=== PATIENT | female | born 1945 | race Caucasian/White ===

== ENCOUNTER 2017-09-25 16:36 | Inpatient (IN) ==
[~2017-09-25 16:36] MED LIST: LIDOCAINE 1% 20 ML VIAL ONE
[2017-09-25] MEDS ORDERED: fentaNYL 100 MCG/2 ML VIAL ONE (16:38)
[2017-09-25] MEDS ORDERED: MIDAZOLAM 2 MG/2 ML VIAL ONE (16:39)
[2017-09-25] MEDS ORDERED: HEPARIN 5,000 UNIT/1 ML VIAL ONE (17:15)
[2017-09-25] MEDS ORDERED: AMIODARONE INJ 450 MG in DEXTROSE 5% 241 ML IV SCH (17:30)
[2017-09-25] MEDS ORDERED: ONDANSETRON 4 MG/2 ML VIAL IV PRN (18:10)
[2017-09-25] MEDS ORDERED: NOREPINEPHRINE 4 MG/4 ML VIAL IV ONE ×2 (18:24→19:27)
[2017-09-25] MEDS ORDERED: PROPOFOL 1,000 MG/100 ML BOTTLE IV ONE (18:33)
[2017-09-25] MEDS: PROPOFOL 1,000 MG/100 ML BOTTLE IV SCH (19:00)
[2017-09-25 19:16] LABS: Basophils # 0.1 10*3/uL (0.0-0.2); Basophils % 0.3 % (0.0-0.8); Eosinophils # 0.1 10*3/uL (0.0-0.87); Eosinophils % 0.6 % (0.00-10.9); Hematocrit 31.3 VOL% (35.7-47.0); Immature Granulocytes % 0.9 %; Immature Granulocytes Absolute 0.17 #; Lymphocytes % 10.3 % (21.3-54.2); Mean Corpuscular HGB Conc 31.9 GM/DL (32-36); Mean Corpuscular Hemoglobin 30 PG (27-34); Mean Corpuscular Volume 95.1 FL (87-102); Mean Platelet Volume 10.6 FL (9.6-12.0); Monocytes # 1.1 10*3/uL (0.11-0.8); Monocytes % 5.8 % (1.7-12.7); Neutrophils % 82.1 % (38.7-73.9); Platelet Count 275 T/CUMM (130-400); Red Blood Count 3.29 MC/CUMM (3.8-5.5); Red Cell Distribution Width 13.5 % (9.3-17.3); White Blood Count 19.5 T/CUMM (4-12)
[2017-09-25] MEDS: SODIUM CHLORIDE 0.9% 1,000 ML IV SCH (19:24)
[2017-09-25] MEDS ORDERED: SODIUM CHLORIDE 0.9% 1,000 ML IV ONE (20:00)
[2017-09-25] MEDS: DOBUTamine 500 MG/250 ML PREMIX IV SCH (20:00)
[2017-09-25 20:07] LABS: ABG HCO3 16.4 MMOL/L (20-26); ABG Oxygen Saturation 98.2 % (95-100); ABG PCO2 50.4 MM HG (35-48); ABG TCO2 17.5 MMOL/L (23-27)
[2017-09-25 20:08] LABS: ABG PH 7.169 (7.35-7.45)
[2017-09-25] MEDS ORDERED: SODIUM BICARBONATE 50 MEQ/50 ML SYRINGE IV ONE ×2 (20:16→20:26)
[2017-09-25 20:22] LABS: Alanine Aminotransferase 46 U/L (13-56); Albumin 2.5 G/DL (3.4-5.0); Alkaline Phosphatase 65 U/L (45-117); Aspartate Amino Transferase 256 U/L (0-37); Bilirubin,Total < 0.39 MG/DL (0.2-1.0); Blood Urea Nitrogen 17 MG/DL (7-18); Calcium 7.5 MG/DL (8.5-10.1); Glucose 240 MG/DL (74-106); Osmolality,Calculated 288.4 MOS/KG (273-304); Potassium 4.3 MMOL/L (3.5-5.1); Sodium 140 MMOL/L (136-145); Total Protein 4.9 G/DL (6.4-8.3)
[2017-09-25] MEDS: NOREPINEPHRINE 8 MG in SODIUM CHLORIDE 0.9% 242 ML IV SCH (20:45)
[2017-09-25] MEDS: CARVEDILOL 6.25 MG TABLET PO SCH (21:09)
[2017-09-25] MEDS: ROSUVASTATIN 20 MG TABLET PO SCH (21:09)
[2017-09-25 21:24] LABS: ABG Base Excess -2.9 MMOL/L (-2.5-2.5); ABG HCO3 21.9 MMOL/L (20-26); ABG Oxygen Saturation 98.7 % (95-100); ABG PCO2 37.5 MM HG (35-48); ABG PH 7.384 (7.35-7.45); ABG PO2 231.5 MM HG (80-95)
[2017-09-26] MEDS: NOREPINEPHRINE 8 MG in SODIUM CHLORIDE 0.9% 242 ML IV SCH ×6 (00:13→19:38)
[2017-09-26] MEDS ORDERED: AMIODARONE INJ 450 MG in DEXTROSE 5% 241 ML IV SCH ×2 (02:00→17:30)
[2017-09-26 04:50] LABS: ABG Base Excess -2.6 MMOL/L (-2.5-2.5); ABG HCO3 22.3 MMOL/L (20-26); ABG PCO2 29.4 MM HG (35-48); ABG PH 7.455 (7.35-7.45); ABG TCO2 19.2 MMOL/L (23-27)
[2017-09-26 04:54] LABS: Basophils % 0.1 % (0.0-0.8); Eosinophils % 0.1 % (0.00-10.9); Hematocrit 24.3 VOL% (35.7-47.0); Hemoglobin 8.2 GM/DL (12.0-16.0); Immature Granulocytes % 0.7 %; Immature Granulocytes Absolute 0.09 #; Lymphocytes # 2.2 10*3/uL (1.4-4.0); Lymphocytes % 15.8 % (21.3-54.2); Mean Corpuscular HGB Conc 33.7 GM/DL (32-36); Mean Corpuscular Hemoglobin 31 PG (27-34); Mean Platelet Volume 10.6 FL (9.6-12.0); Monocytes # 1.3 10*3/uL (0.11-0.8); Monocytes % 9.2 % (1.7-12.7); Neutrophils # 10.2 10*3/uL (1.4-7.4); Neutrophils % 74.1 % (38.7-73.9); Platelet Count 207 T/CUMM (130-400); Red Blood Count 2.64 MC/CUMM (3.8-5.5); Red Cell Distribution Width 13.3 % (9.3-17.3); White Blood Count 13.7 T/CUMM (4-12)
[2017-09-26] MEDS: PROPOFOL 1,000 MG/100 ML BOTTLE IV SCH ×5 (05:00→23:35)
[2017-09-26 05:28] LABS: CKMB % 9.6 %
[2017-09-26] MEDS ORDERED: NOREPINEPHRINE 4 MG/4 ML VIAL IV ONE (06:14)
[2017-09-26] MEDS: SODIUM CHLORIDE 0.9% 1,000 ML IV SCH ×4 (06:21→21:18)
[2017-09-26 07:59] LABS: Calcium 6.5 MG/DL (8.5-10.1); Osmolality,Calculated 289.1 MOS/KG (273-304); Potassium 3.8 MMOL/L (3.5-5.1)
[2017-09-26] MEDS ORDERED: SODIUM CHLORIDE 0.9% 1,000 ML IV PRN (08:11)
[2017-09-26 08:46] LABS: Risk Ratio 4.68; VLDL CHOLESTEROL 34.2 MG/DL
[2017-09-26] MEDS ORDERED: PANTOPRAZOLE 40 MG TABLET PO SCH (09:00)
[2017-09-26] MEDS: PANTOPRAZOLE 40 MG VIAL IV SCH (09:16)
[2017-09-26] MEDS: ASPIRIN EC 81 MG TABLET PO SCH (09:16)
[2017-09-26] MEDS: TICAGRELOR 90 MG TABLET PO SCH ×2 (09:17→20:20)
[2017-09-26] MEDS ORDERED: POTASSIUM CHLORIDE RIDER 10 MEQ in PREMIX 1 EACH IV PRN (10:55)
[2017-09-26] MEDS: POTASSIUM CHLORIDE RIDER 20 MEQ in PREMIX 1 EACH IV PRN (11:32)
[2017-09-26 12:25] LABS: Apearance,Urine Slightly Hazy (Clear); Bacteria,Urine Occasional /HPF (Few); Bilirubin,Urine Negative (Negative); Blood, Urine Moderate mg/dL (Negative); Glucose,Urine (UA) 150 mg/dL (Negative); Ketones,Urine 5 mg/dL (Negative); Mucus,Urine Many /LPF (Occasional); Nitrite,Urine Negative (Negative); Protein,Urine 30 MG/DL; RBC,Urine 6 /HPF (0-4); Squamous Epithelial Cell,Urine Occasional /HPF (0-10); Urine Color Yellow (Yellow); Urine Specific Gravity > 1.060 (1.001-1.035); Urine Urobilinogen < 2.0 EU/DL (0.2-1.0)
[2017-09-26 15:44] LABS: Hematocrit 32.5 VOL% (35.7-47.0); Hemoglobin 10.7 GM/DL (12.0-16.0)
[2017-09-26] MEDS: DOBUTamine 500 MG/250 ML PREMIX IV SCH (20:19)
[2017-09-26] MEDS: ROSUVASTATIN 20 MG TABLET PO SCH (20:20)
[2017-09-27] MEDS: SODIUM CHLORIDE 0.9% 1,000 ML IV SCH ×3 (03:10→13:22)
[2017-09-27 05:04] LABS: Basophils % 0.2 % (0.0-0.8); Eosinophils % 0.4 % (0.00-10.9); Hematocrit 28.7 VOL% (35.7-47.0); Hemoglobin 9.5 GM/DL (12.0-16.0); Immature Granulocytes % 0.4 %; Immature Granulocytes Absolute 0.04 #; Lymphocytes # 1.4 10*3/uL (1.4-4.0); Lymphocytes % 14.9 % (21.3-54.2); Mean Corpuscular HGB Conc 33.1 GM/DL (32-36); Mean Corpuscular Hemoglobin 29 PG (27-34); Mean Corpuscular Volume 88.9 FL (87-102); Monocytes # 0.7 10*3/uL (0.11-0.8); Monocytes % 7.4 % (1.7-12.7); Neutrophils # 7.3 10*3/uL (1.4-7.4); Neutrophils % 76.7 % (38.7-73.9); Platelet Count 109 T/CUMM (130-400); Red Blood Count 3.23 MC/CUMM (3.8-5.5); Red Cell Distribution Width 15.8 % (9.3-17.3); White Blood Count 9.5 T/CUMM (4-12)
[2017-09-27 05:05] LABS: ABG Base Excess -3.8 MMOL/L (-2.5-2.5); ABG HCO3 21.2 MMOL/L (20-26); ABG Oxygen Saturation 99.6 % (95-100); ABG PH 7.397 (7.35-7.45); ABG TCO2 18.6 MMOL/L (23-27)
[2017-09-27 05:45] LABS: Calcium 6.7 MG/DL (8.5-10.1); Osmolality,Calculated 286.7 MOS/KG (273-304); Potassium 3.3 MMOL/L (3.5-5.1)
[2017-09-27] MEDS: HYDROmorphone 2 MG/1 ML VIAL IV PRN ×2 (05:56)
[2017-09-27] MEDS: PROPOFOL 1,000 MG/100 ML BOTTLE IV SCH ×3 (06:00→19:55)
[2017-09-27] MEDS: POTASSIUM CHLORIDE RIDER 20 MEQ in PREMIX 1 EACH IV PRN ×2 (06:20→08:21)
[2017-09-27] MEDS: PANTOPRAZOLE 40 MG VIAL IV SCH (08:10)
[2017-09-27] MEDS: CARVEDILOL 6.25 MG TABLET PO SCH (08:10)
[2017-09-27] MEDS: ASPIRIN EC 81 MG TABLET PO SCH (08:10)
[2017-09-27] MEDS: LOSARTAN 25 MG TABLET PO SCH (08:10)
[2017-09-27] MEDS: TICAGRELOR 90 MG TABLET PO SCH ×2 (08:10→21:25)
[2017-09-27] MEDS: NOREPINEPHRINE 8 MG in SODIUM CHLORIDE 0.9% 242 ML IV SCH ×2 (08:22→16:38)
[2017-09-27 08:30] LABS: Hematocrit 29.2 VOL% (35.7-47.0); Hemoglobin 9.6 GM/DL (12.0-16.0)
[2017-09-27 11:25] LABS: CKMB % 3.7 %; Troponin I Only 34.8 NG/ML (0.00-0.045)
[2017-09-27] MEDS ORDERED: NICOTINE 14 MG/24 HR PATCH TRANSDERM ONE (14:30)
[2017-09-27] MEDS: NICOTINE 14 MG/24 HR PATCH TRANSDERM PRN (14:31)
[2017-09-27] MEDS ORDERED: ALPRAZolam 0.25 MG TABLET ONE (15:08)
[2017-09-27] MEDS: ALPRAZolam 0.25 MG TABLET PO SCH ×2 (15:13→21:25)
[2017-09-27 20:29] LABS: Hematocrit 28.5 VOL% (35.7-47.0); Hemoglobin 9.1 GM/DL (12.0-16.0)
[2017-09-27] MEDS: ROSUVASTATIN 20 MG TABLET PO SCH (21:25)
[2017-09-28] MEDS: SODIUM CHLORIDE 0.9% 1,000 ML IV SCH (00:51)
[2017-09-28] MEDS: PROPOFOL 1,000 MG/100 ML BOTTLE IV SCH ×4 (01:27→19:45)
[2017-09-28 04:45] LABS: ABG Base Excess -4.6 MMOL/L (-2.5-2.5); ABG HCO3 20.6 MMOL/L (20-26); ABG Oxygen Saturation 99.2 % (95-100); ABG PCO2 33.8 MM HG (35-48); ABG PH 7.377 (7.35-7.45); ABG TCO2 18.2 MMOL/L (23-27); Allen Test Positive; Pt O2 Delivery Device Ventilator
[2017-09-28 04:57] LABS: Basophils % 0.1 % (0.0-0.8); Eosinophils # 0.1 10*3/uL (0.0-0.87); Eosinophils % 0.8 % (0.00-10.9); Hematocrit 26.3 VOL% (35.7-47.0); Hemoglobin 8.9 GM/DL (12.0-16.0); Immature Granulocytes % 0.6 %; Immature Granulocytes Absolute 0.06 #; Lymphocytes # 0.7 10*3/uL (1.4-4.0); Lymphocytes % 7.1 % (21.3-54.2); Mean Corpuscular HGB Conc 33.8 GM/DL (32-36); Mean Corpuscular Hemoglobin 30 PG (27-34); Mean Corpuscular Volume 89.2 FL (87-102); Mean Platelet Volume 10.9 FL (9.6-12.0); Monocytes # 0.7 10*3/uL (0.11-0.8); Monocytes % 7.3 % (1.7-12.7); Neutrophils # 7.9 10*3/uL (1.4-7.4); Neutrophils % 84.1 % (38.7-73.9); Platelet Count 111 T/CUMM (130-400); Red Blood Count 2.95 MC/CUMM (3.8-5.5); Red Cell Distribution Width 16.4 % (9.3-17.3); White Blood Count 9.4 T/CUMM (4-12)
[2017-09-28] MEDS: NOREPINEPHRINE 8 MG in SODIUM CHLORIDE 0.9% 242 ML IV SCH ×2 (05:07→20:50)
[2017-09-28 05:29] LABS: Calcium 7.2 MG/DL (8.5-10.1); Osmolality,Calculated 284.7 MOS/KG (273-304); Potassium 3.4 MMOL/L (3.5-5.1)
[2017-09-28] MEDS: POTASSIUM CHLORIDE RIDER 20 MEQ in PREMIX 1 EACH IV PRN ×2 (05:54→06:55)
[2017-09-28] MEDS: DOBUTamine 500 MG/250 ML PREMIX IV SCH ×2 (06:36→21:54)
[2017-09-28] MEDS: ALPRAZolam 0.25 MG TABLET PO SCH ×2 (08:45→20:02)
[2017-09-28] MEDS: ASPIRIN EC 81 MG TABLET PO SCH (08:46)
[2017-09-28] MEDS: PANTOPRAZOLE 40 MG VIAL IV SCH (08:46)
[2017-09-28] MEDS: TICAGRELOR 90 MG TABLET PO SCH ×2 (08:46→20:02)
[2017-09-28] MEDS ORDERED: FUROSEMIDE 40 MG/4 ML VIAL IV ONE (08:52)
[2017-09-28] MEDS: CARVEDILOL 6.25 MG TABLET PO SCH (09:05)
[2017-09-28] MEDS: LOSARTAN 25 MG TABLET PO SCH (09:06)
[2017-09-28] MEDS ORDERED: SODIUM CHLORIDE 0.9% 1,000 ML IV PRN (09:10)
[2017-09-28] MEDS ORDERED: DEXTROSE 50% 25 GM/50 ML VIAL IV PRN (11:47)
[2017-09-28] MEDS ORDERED: GLUCAGON 1 MG VIAL IM PRN (11:47)
[2017-09-28] MEDS: INSULIN REGULAR 100 UNIT/ML SUBCUT SCH ×3 (14:12→23:36)
[2017-09-28 16:00] LABS: Hematocrit 37.2 VOL% (35.7-47.0); Hemoglobin 12.7 GM/DL (12.0-16.0)
[2017-09-28] MEDS: ASCORBIC ACID 500 MG TABLET PO SCH (20:02)
[2017-09-28] MEDS: ROSUVASTATIN 20 MG TABLET PO SCH (20:02)
[2017-09-29] MEDS: PROPOFOL 1,000 MG/100 ML BOTTLE IV SCH ×4 (01:22→23:00)
[2017-09-29 04:05] LABS: Basophils % 0.2 % (0.0-0.8); Eosinophils # 0.1 10*3/uL (0.0-0.87); Eosinophils % 1.3 % (0.00-10.9); Hematocrit 36.4 VOL% (35.7-47.0); Hemoglobin 12.1 GM/DL (12.0-16.0); Immature Granulocytes % 0.4 %; Immature Granulocytes Absolute 0.03 #; Lymphocytes # 0.6 10*3/uL (1.4-4.0); Lymphocytes % 6.8 % (21.3-54.2); Mean Corpuscular HGB Conc 33.2 GM/DL (32-36); Mean Corpuscular Hemoglobin 30 PG (27-34); Mean Corpuscular Volume 89.7 FL (87-102); Mean Platelet Volume 11.6 FL (9.6-12.0); Monocytes # 0.5 10*3/uL (0.11-0.8); Neutrophils # 7.3 10*3/uL (1.4-7.4); Neutrophils % 85.3 % (38.7-73.9); Platelet Count 113 T/CUMM (130-400); Red Blood Count 4.06 MC/CUMM (3.8-5.5); Red Cell Distribution Width 15.8 % (9.3-17.3); White Blood Count 8.6 T/CUMM (4-12)
[2017-09-29 04:11] LABS: Pt O2 Delivery Device Ventilator
[2017-09-29 04:14] LABS: ABG Base Excess 1.1 MMOL/L (-2.5-2.5); ABG HCO3 24.5 MMOL/L (20-26); ABG Oxygen Saturation 98.2 % (95-100); ABG PCO2 34.7 MM HG (35-48); ABG PH 7.466 (7.35-7.45); ABG PO2 122.3 MM HG (80-95); ABG TCO2 25.5 MMOL/L (23-27)
[2017-09-29 04:23] LABS: Calcium 8.1 MG/DL (8.5-10.1); Potassium 3.5 MMOL/L (3.5-5.1)
[2017-09-29 04:39] LABS: Prealbumin 9.2 MG/DL (20-40)
[2017-09-29] MEDS: POTASSIUM CHLORIDE RIDER 20 MEQ in PREMIX 1 EACH IV PRN ×2 (05:20→09:30)
[2017-09-29] MEDS: INSULIN REGULAR 100 UNIT/ML SUBCUT SCH ×3 (06:23→18:12)
[2017-09-29] MEDS: PANTOPRAZOLE 40 MG VIAL IV SCH (08:49)
[2017-09-29] MEDS: NICOTINE 14 MG/24 HR PATCH TRANSDERM PRN (08:49)
[2017-09-29] MEDS: ALPRAZolam 0.25 MG TABLET PO SCH ×2 (08:50→20:22)
[2017-09-29] MEDS: ASPIRIN EC 81 MG TABLET PO SCH (08:50)
[2017-09-29] MEDS: TICAGRELOR 90 MG TABLET PO SCH ×2 (08:50→20:22)
[2017-09-29] MEDS: ASCORBIC ACID 500 MG TABLET PO SCH ×2 (08:50→20:22)
[2017-09-29] MEDS: LOSARTAN 25 MG TABLET PO SCH (08:51)
[2017-09-29] MEDS: CARVEDILOL 6.25 MG TABLET PO SCH (08:51)
[2017-09-29] MEDS ORDERED: FUROSEMIDE 40 MG/4 ML VIAL IV ONE (09:45)
[2017-09-29] MEDS: NOREPINEPHRINE 8 MG in SODIUM CHLORIDE 0.9% 242 ML IV SCH ×2 (12:04→19:50)
[2017-09-29] MEDS: DOBUTamine 500 MG/250 ML PREMIX IV SCH ×2 (17:53→20:23)
[2017-09-29] MEDS: ROSUVASTATIN 20 MG TABLET PO SCH (20:22)
[2017-09-30] MEDS: INSULIN REGULAR 100 UNIT/ML SUBCUT SCH ×4 (01:15→19:36)
[2017-09-30] MEDS: POTASSIUM CHLORIDE RIDER 20 MEQ in PREMIX 1 EACH IV PRN (04:45)
[2017-09-30 05:38] LABS: Calcium 8.2 MG/DL (8.5-10.1); Potassium 3.7 MMOL/L (3.5-5.1)
[2017-09-30 06:11] LABS: ABG Base Excess 5.1 MMOL/L (-2.5-2.5); ABG HCO3 29.1 MMOL/L (20-26); ABG Oxygen Saturation 99.2 % (95-100); ABG PCO2 33.7 MM HG (35-48); ABG PH 7.523 (7.35-7.45); ABG TCO2 24.4 MMOL/L (23-27)
[2017-09-30 06:15] LABS: Basophils % 0.1 % (0.0-0.8); Eosinophils # 0.1 10*3/uL (0.0-0.87); Eosinophils % 1.3 % (0.00-10.9); Hematocrit 33.9 VOL% (35.7-47.0); Hemoglobin 11.8 GM/DL (12.0-16.0); Immature Granulocytes % 1.5 %; Immature Granulocytes Absolute 0.12 #; Lymphocytes # 0.8 10*3/uL (1.4-4.0); Lymphocytes % 9.2 % (21.3-54.2); Mean Corpuscular HGB Conc 34.8 GM/DL (32-36); Mean Corpuscular Hemoglobin 31 PG (27-34); Mean Corpuscular Volume 87.8 FL (87-102); Mean Platelet Volume 11.4 FL (9.6-12.0); Monocytes # 0.7 10*3/uL (0.11-0.8); Monocytes % 8.9 % (1.7-12.7); Neutrophils # 6.5 10*3/uL (1.4-7.4); Platelet Count 147 T/CUMM (130-400); Red Blood Count 3.86 MC/CUMM (3.8-5.5); Red Cell Distribution Width 15.9 % (9.3-17.3); White Blood Count 8.3 T/CUMM (4-12)
[2017-09-30] MEDS: PROPOFOL 1,000 MG/100 ML BOTTLE IV SCH ×3 (06:27→21:30)
[2017-09-30] MEDS: CARVEDILOL 6.25 MG TABLET PO SCH ×2 (09:26→20:20)
[2017-09-30] MEDS: LOSARTAN 25 MG TABLET PO SCH (09:26)
[2017-09-30] MEDS: PANTOPRAZOLE 40 MG VIAL IV SCH (09:46)
[2017-09-30] MEDS: NICOTINE 14 MG/24 HR PATCH TRANSDERM PRN (09:46)
[2017-09-30] MEDS: ALPRAZolam 0.25 MG TABLET PO SCH ×2 (09:47→20:20)
[2017-09-30] MEDS: TICAGRELOR 90 MG TABLET PO SCH ×2 (09:47→20:20)
[2017-09-30] MEDS: ASCORBIC ACID 500 MG TABLET PO SCH ×2 (09:47→20:20)
[2017-09-30] MEDS: ASPIRIN EC 81 MG TABLET PO SCH (09:47)
[2017-09-30] MEDS: HYDROmorphone 2 MG/1 ML VIAL IV PRN (15:08)
[2017-09-30] MEDS: ROSUVASTATIN 20 MG TABLET PO SCH (20:19)
[2017-09-30] MEDS: DOBUTamine 500 MG/250 ML PREMIX IV SCH (21:27)
[2017-09-30] MEDS: NOREPINEPHRINE 8 MG in SODIUM CHLORIDE 0.9% 242 ML IV SCH (21:27)
[2017-10-01] MEDS: INSULIN REGULAR 100 UNIT/ML SUBCUT SCH ×4 (00:46→18:55)
[2017-10-01 03:26] LABS: Basophils % 0.2 % (0.0-0.8); Eosinophils # 0.3 10*3/uL (0.0-0.87); Eosinophils % 2.7 % (0.00-10.9); Hematocrit 34.7 VOL% (35.7-47.0); Hemoglobin 11.4 GM/DL (12.0-16.0); Immature Granulocytes % 0.7 %; Immature Granulocytes Absolute 0.07 #; Lymphocytes # 0.5 10*3/uL (1.4-4.0); Mean Corpuscular HGB Conc 32.9 GM/DL (32-36); Mean Corpuscular Hemoglobin 30 PG (27-34); Mean Corpuscular Volume 90.8 FL (87-102); Mean Platelet Volume 11.3 FL (9.6-12.0); Monocytes # 0.8 10*3/uL (0.11-0.8); Monocytes % 7.6 % (1.7-12.7); Neutrophils # 8.3 10*3/uL (1.4-7.4); Neutrophils % 83.8 % (38.7-73.9); Platelet Count 155 T/CUMM (130-400); Red Blood Count 3.82 MC/CUMM (3.8-5.5); Red Cell Distribution Width 15.9 % (9.3-17.3); White Blood Count 9.9 T/CUMM (4-12)
[2017-10-01 03:49] LABS: Calcium 8.1 MG/DL (8.5-10.1); Osmolality,Calculated 286.1 MOS/KG (273-304); Potassium 3.8 MMOL/L (3.5-5.1)
[2017-10-01] MEDS: PROPOFOL 1,000 MG/100 ML BOTTLE IV SCH ×3 (04:01→20:42)
[2017-10-01] MEDS: HYDROmorphone 2 MG/1 ML VIAL IV PRN ×2 (04:53→17:08)
[2017-10-01] MEDS: POTASSIUM CHLORIDE RIDER 20 MEQ in PREMIX 1 EACH IV PRN (04:54)
[2017-10-01 07:27] LABS: ABG Base Excess 3.9 MMOL/L (-2.5-2.5); ABG HCO3 27.9 MMOL/L (20-26); ABG PCO2 37.3 MM HG (35-48); ABG PH 7.476 (7.35-7.45); ABG PO2 69.8 MM HG (80-95); ABG TCO2 24.4 MMOL/L (23-27)
[2017-10-01] MEDS: ENOXAPARIN 40 MG/0.4 ML SYRINGE SUBCUT SCH (08:42)
[2017-10-01] MEDS: ASPIRIN EC 81 MG TABLET PO SCH (08:42)
[2017-10-01] MEDS: CARVEDILOL 6.25 MG TABLET PO SCH ×2 (08:43→20:27)
[2017-10-01] MEDS: NICOTINE 14 MG/24 HR PATCH TRANSDERM PRN (08:43)
[2017-10-01] MEDS: ALPRAZolam 0.25 MG TABLET PO SCH ×2 (08:43→20:27)
[2017-10-01] MEDS: ASCORBIC ACID 500 MG TABLET PO SCH ×2 (08:43→20:27)
[2017-10-01] MEDS: PANTOPRAZOLE 40 MG VIAL IV SCH (08:43)
[2017-10-01] MEDS: TICAGRELOR 90 MG TABLET PO SCH ×2 (08:43→20:27)
[2017-10-01] MEDS ORDERED: DEXAMETHASONE INJ 10 MG in SODIUM CHLORIDE 0.9% 50 ML IV ONE (09:17)
[2017-10-01] MEDS ORDERED: DEXAMETHASONE 10 MG/1 ML VIAL IV ONE (09:28)
[2017-10-01] MEDS ORDERED: DEXAMETHASONE 4 MG/1 ML VIAL IV ONE (09:30)
[2017-10-01 11:34] LABS: ABG HCO3 26.1 MMOL/L (20-26); ABG Oxygen Saturation 93.3 % (95-100); ABG PCO2 43.9 MM HG (35-48); ABG PH 7.401 (7.35-7.45); ABG PO2 68.4 MM HG (80-95); ABG TCO2 23.8 MMOL/L (23-27)
[2017-10-01] MEDS: DEXAMETHASONE 4 MG/1 ML VIAL IV SCH ×2 (14:49→20:33)
[2017-10-01] MEDS: LOSARTAN 25 MG TABLET PO SCH (14:49)
[2017-10-01] MEDS: ROSUVASTATIN 20 MG TABLET PO SCH (20:27)
[2017-10-01] MEDS: NOREPINEPHRINE 8 MG in SODIUM CHLORIDE 0.9% 242 ML IV SCH (20:42)
[2017-10-01] MEDS: DOBUTamine 500 MG/250 ML PREMIX IV SCH (20:45)
[2017-10-02] MEDS: INSULIN REGULAR 100 UNIT/ML SUBCUT SCH ×4 (00:11→17:22)
[2017-10-02] MEDS: DOBUTamine 500 MG/250 ML PREMIX IV SCH (01:14)
[2017-10-02] MEDS: DEXAMETHASONE 4 MG/1 ML VIAL IV SCH ×4 (02:50→21:57)
[2017-10-02] MEDS: NOREPINEPHRINE 8 MG in SODIUM CHLORIDE 0.9% 242 ML IV SCH ×2 (02:51→21:53)
[2017-10-02 03:08] LABS: Basophils % 0.1 % (0.0-0.8); Hematocrit 32.9 VOL% (35.7-47.0); Hemoglobin 10.6 GM/DL (12.0-16.0); Immature Granulocytes % 0.8 %; Immature Granulocytes Absolute 0.07 #; Lymphocytes # 0.4 10*3/uL (1.4-4.0); Lymphocytes % 4.4 % (21.3-54.2); Mean Corpuscular HGB Conc 32.2 GM/DL (32-36); Mean Corpuscular Hemoglobin 29 PG (27-34); Mean Corpuscular Volume 90.6 FL (87-102); Monocytes # 0.5 10*3/uL (0.11-0.8); Monocytes % 5.4 % (1.7-12.7); Neutrophils # 8.3 10*3/uL (1.4-7.4); Neutrophils % 89.3 % (38.7-73.9); Platelet Count 184 T/CUMM (130-400); Red Blood Count 3.63 MC/CUMM (3.8-5.5); Red Cell Distribution Width 15.4 % (9.3-17.3); White Blood Count 9.3 T/CUMM (4-12)
[2017-10-02 03:36] LABS: Calcium 8.3 MG/DL (8.5-10.1); Osmolality,Calculated 290.1 MOS/KG (273-304); Potassium 4.5 MMOL/L (3.5-5.1)
[2017-10-02 03:39] LABS: Prealbumin 8.4 MG/DL (20-40)
[2017-10-02] MEDS ORDERED: ROCURONIUM 100 MG/10 ML VIAL IV ONE (03:58)
[2017-10-02] MEDS ORDERED: ETOMIDATE 40 MG/20 ML VIAL IV ONE (03:58)
[2017-10-02 04:08] LABS: ABG Base Excess 4.7 MMOL/L (-2.5-2.5); ABG HCO3 28.6 MMOL/L (20-26); ABG Oxygen Saturation 98.5 % (95-100); ABG PCO2 31.2 MM HG (35-48); ABG PH 7.542 (7.35-7.45); ABG PO2 96.3 MM HG (80-95); ABG TCO2 23.8 MMOL/L (23-27)
[2017-10-02 04:58] LABS: Band Neutrophils 2 % (0-10); Lymphocytes 4 % (20-55); Segmented Neutrophils 91 % (50-85); Total Cells Counted 100
[2017-10-02 04:59] LABS: Hypochromasia Slight; Platelet Estimate Normal
[2017-10-02] MEDS: PROPOFOL 1,000 MG/100 ML BOTTLE IV SCH ×2 (05:45→17:09)
[2017-10-02] MEDS: PANTOPRAZOLE 40 MG VIAL IV SCH (08:17)
[2017-10-02] MEDS: NICOTINE 14 MG/24 HR PATCH TRANSDERM PRN (08:17)
[2017-10-02] MEDS: ENOXAPARIN 40 MG/0.4 ML SYRINGE SUBCUT SCH (08:17)
[2017-10-02] MEDS ORDERED: MIDAZOLAM 2 MG/2 ML VIAL ONE (08:45)
[2017-10-02] MEDS ORDERED: MIDAZOLAM 2 MG/2 ML VIAL IV ONE (08:45)
[2017-10-02] MEDS: CARVEDILOL 6.25 MG TABLET PO SCH ×2 (09:01→21:56)
[2017-10-02] MEDS: ASCORBIC ACID 500 MG TABLET PO SCH ×2 (09:01→21:57)
[2017-10-02] MEDS: TICAGRELOR 90 MG TABLET PO SCH ×2 (09:01→21:57)
[2017-10-02] MEDS: ALPRAZolam 0.25 MG TABLET PO SCH ×2 (09:02→21:56)
[2017-10-02] MEDS: ASPIRIN EC 81 MG TABLET PO SCH (09:02)
[2017-10-02] MEDS: LOSARTAN 25 MG TABLET PO SCH (09:06)
[2017-10-02] MEDS: ROSUVASTATIN 20 MG TABLET PO SCH (21:54)
[2017-10-03] MEDS: INSULIN REGULAR 100 UNIT/ML SUBCUT SCH ×4 (00:21→17:15)
[2017-10-03] MEDS: PROPOFOL 1,000 MG/100 ML BOTTLE IV SCH ×2 (02:01→14:20)
[2017-10-03] MEDS: DEXAMETHASONE 4 MG/1 ML VIAL IV SCH ×4 (03:16→21:01)
[2017-10-03 04:49] LABS: ABG Base Excess 4.9 MMOL/L (-2.5-2.5); ABG HCO3 28.8 MMOL/L (20-26); ABG Oxygen Saturation 96.5 % (95-100); ABG PCO2 35.3 MM HG (35-48); ABG PH 7.506 (7.35-7.45); ABG PO2 79.5 MM HG (80-95)
[2017-10-03] MEDS: DOBUTamine 500 MG/250 ML PREMIX IV SCH ×2 (06:56→21:03)
[2017-10-03] MEDS: CARVEDILOL 6.25 MG TABLET PO SCH ×2 (08:23→21:01)
[2017-10-03] MEDS: ASCORBIC ACID 500 MG TABLET PO SCH ×2 (08:23→21:00)
[2017-10-03] MEDS: ENOXAPARIN 40 MG/0.4 ML SYRINGE SUBCUT SCH (08:24)
[2017-10-03] MEDS: LOSARTAN 25 MG TABLET PO SCH (08:24)
[2017-10-03] MEDS: ALPRAZolam 0.25 MG TABLET PO SCH ×2 (08:24→21:04)
[2017-10-03] MEDS: TICAGRELOR 90 MG TABLET PO SCH ×2 (08:24→20:59)
[2017-10-03] MEDS: ASPIRIN EC 81 MG TABLET PO SCH (08:24)
[2017-10-03] MEDS: PANTOPRAZOLE 40 MG VIAL IV SCH (08:28)
[2017-10-03] MEDS: FUROSEMIDE 20 MG/2 ML VIAL IV SCH ×2 (08:31→21:02)
[2017-10-03 08:40] LABS: Basophils % 0.1 % (0.0-0.8); Hematocrit 32.1 VOL% (35.7-47.0); Hemoglobin 10.6 GM/DL (12.0-16.0); Immature Granulocytes % 2.3 %; Immature Granulocytes Absolute 0.23 #; Lymphocytes # 0.4 10*3/uL (1.4-4.0); Lymphocytes % 3.9 % (21.3-54.2); Mean Corpuscular Hemoglobin 29 PG (27-34); Mean Corpuscular Volume 88.9 FL (87-102); Mean Platelet Volume 10.9 FL (9.6-12.0); Monocytes % 10.3 % (1.7-12.7); Neutrophils # 8.2 10*3/uL (1.4-7.4); Neutrophils % 83.4 % (38.7-73.9); Platelet Count 242 T/CUMM (130-400); Red Blood Count 3.61 MC/CUMM (3.8-5.5); Red Cell Distribution Width 15.1 % (9.3-17.3); White Blood Count 9.9 T/CUMM (4-12)
[2017-10-03 09:04] LABS: Lymphocytes 3 % (20-55); Segmented Neutrophils 87 % (50-85); Total Cells Counted 100
[2017-10-03 09:05] LABS: Calcium 8.4 MG/DL (8.5-10.1); Hypochromasia 1+; Microcytosis 1+; Osmolality,Calculated 294.8 MOS/KG (273-304); Platelet Estimate Normal; Potassium 3.9 MMOL/L (3.5-5.1)
[2017-10-03] MEDS: NICOTINE 14 MG/24 HR PATCH TRANSDERM PRN (10:26)
[2017-10-03] MEDS: LORazepam 2 MG/1 ML VIAL IV PRN (15:08)
[2017-10-03] MEDS: ROSUVASTATIN 20 MG TABLET PO SCH (20:58)
[2017-10-04] MEDS: INSULIN REGULAR 100 UNIT/ML SUBCUT SCH ×4 (00:39→19:02)
[2017-10-04] MEDS: PROPOFOL 1,000 MG/100 ML BOTTLE IV SCH ×2 (04:04→18:30)
[2017-10-04] MEDS: DEXAMETHASONE 4 MG/1 ML VIAL IV SCH ×4 (04:05→21:43)
[2017-10-04 04:20] LABS: Allen Test Positive; Pt O2 Delivery Device Ventilator
[2017-10-04 04:21] LABS: ABG Base Excess 6.6 MMOL/L (-2.5-2.5); ABG HCO3 30.3 MMOL/L (20-26); ABG Oxygen Saturation 94.6 % (95-100); ABG PCO2 38.1 MM HG (35-48); ABG PH 7.505 (7.35-7.45); ABG PO2 68.9 MM HG (80-95); ABG TCO2 26.9 MMOL/L (23-27)
[2017-10-04 05:15] LABS: Basophils % 0.1 % (0.0-0.8); Hematocrit 32.8 VOL% (35.7-47.0); Hemoglobin 10.4 GM/DL (12.0-16.0); Immature Granulocytes % 0.7 %; Immature Granulocytes Absolute 0.06 #; Lymphocytes # 0.7 10*3/uL (1.4-4.0); Lymphocytes % 8.4 % (21.3-54.2); Mean Corpuscular HGB Conc 31.7 GM/DL (32-36); Mean Corpuscular Hemoglobin 29 PG (27-34); Mean Corpuscular Volume 91.1 FL (87-102); Monocytes % 12.5 % (1.7-12.7); Neutrophils # 6.3 10*3/uL (1.4-7.4); Neutrophils % 78.3 % (38.7-73.9); Platelet Count 247 T/CUMM (130-400); Red Cell Distribution Width 14.7 % (9.3-17.3); White Blood Count 8.1 T/CUMM (4-12)
[2017-10-04 05:45] LABS: Calcium 8.2 MG/DL (8.5-10.1); Osmolality,Calculated 293.8 MOS/KG (273-304); Potassium 3.7 MMOL/L (3.5-5.1)
[2017-10-04 05:46] LABS: Osmolality,Calculated 293.8 MOS/KG (273-304); Potassium 3.8 MMOL/L (3.5-5.1)
[2017-10-04] MEDS: PANTOPRAZOLE 40 MG VIAL IV SCH (09:25)
[2017-10-04] MEDS: FUROSEMIDE 20 MG/2 ML VIAL IV SCH (09:25)
[2017-10-04] MEDS: ALPRAZolam 0.25 MG TABLET PO SCH ×2 (09:26→21:30)
[2017-10-04] MEDS: ENOXAPARIN 40 MG/0.4 ML SYRINGE SUBCUT SCH (09:26)
[2017-10-04] MEDS: LOSARTAN 25 MG TABLET PO SCH (09:26)
[2017-10-04] MEDS: TICAGRELOR 90 MG TABLET PO SCH ×2 (09:27→21:26)
[2017-10-04] MEDS: ASPIRIN EC 81 MG TABLET PO SCH (09:27)
[2017-10-04] MEDS: ASCORBIC ACID 500 MG TABLET PO SCH ×2 (09:27→21:30)
[2017-10-04] MEDS: CARVEDILOL 6.25 MG TABLET PO SCH ×2 (09:27→21:26)
[2017-10-04] MEDS ORDERED: FUROSEMIDE 20 MG/2 ML VIAL IV ONE (09:30)
[2017-10-04] MEDS: MEROPENEM 1,000 MG in SYRINGE 1 EACH IV SCH ×2 (13:50→19:30)
[2017-10-04] MEDS: LORazepam 2 MG/1 ML VIAL IV PRN (15:57)
[2017-10-04] MEDS: FUROSEMIDE 40 MG/4 ML VIAL IV SCH (18:23)
[2017-10-04] MEDS: ROSUVASTATIN 20 MG TABLET PO SCH (21:26)
[2017-10-05] MEDS: FUROSEMIDE 40 MG/4 ML VIAL IV SCH (00:30)
[2017-10-05] MEDS: INSULIN REGULAR 100 UNIT/ML SUBCUT SCH ×3 (00:30→14:11)
[2017-10-05 03:35] LABS: ABG Base Excess 10.2 MMOL/L (-2.5-2.5); ABG HCO3 33.9 MMOL/L (20-26); ABG Oxygen Saturation 95.6 % (95-100); ABG PH 7.561 (7.35-7.45); ABG PO2 71.1 MM HG (80-95); ABG TCO2 29.5 MMOL/L (23-27); Allen Test Positive; Pt O2 Delivery Device Ventilator
[2017-10-05] MEDS: MEROPENEM 1,000 MG in SYRINGE 1 EACH IV SCH ×3 (04:39→18:41)
[2017-10-05] MEDS: DEXAMETHASONE 4 MG/1 ML VIAL IV SCH ×4 (04:41→23:02)
[2017-10-05 06:30] LABS: Basophils % 0.1 % (0.0-0.8); Eosinophils % 0.1 % (0.00-10.9); Hematocrit 32.7 VOL% (35.7-47.0); Hemoglobin 10.8 GM/DL (12.0-16.0); Immature Granulocytes % 0.8 %; Immature Granulocytes Absolute 0.07 #; Lymphocytes # 0.9 10*3/uL (1.4-4.0); Lymphocytes % 9.6 % (21.3-54.2); Mean Corpuscular Hemoglobin 30 PG (27-34); Mean Corpuscular Volume 89.8 FL (87-102); Mean Platelet Volume 10.8 FL (9.6-12.0); Monocytes # 0.9 10*3/uL (0.11-0.8); Monocytes % 9.9 % (1.7-12.7); Neutrophils # 7.4 10*3/uL (1.4-7.4); Neutrophils % 79.5 % (38.7-73.9); Platelet Count 270 T/CUMM (130-400); Red Blood Count 3.64 MC/CUMM (3.8-5.5); Red Cell Distribution Width 14.6 % (9.3-17.3); White Blood Count 9.3 T/CUMM (4-12)
[2017-10-05 07:02] LABS: Calcium 8.3 MG/DL (8.5-10.1); Potassium 3.3 MMOL/L (3.5-5.1)
[2017-10-05 07:06] LABS: Prealbumin 20.9 MG/DL (20-40)
[2017-10-05] MEDS: PANTOPRAZOLE 40 MG VIAL IV SCH (08:45)
[2017-10-05] MEDS: ENOXAPARIN 40 MG/0.4 ML SYRINGE SUBCUT SCH (08:45)
[2017-10-05] MEDS: ASCORBIC ACID 500 MG TABLET PO SCH ×2 (08:46→20:10)
[2017-10-05] MEDS: ASPIRIN EC 81 MG TABLET PO SCH (08:47)
[2017-10-05] MEDS: SPIRONOLACTONE 25 MG TABLET PO SCH (08:47)
[2017-10-05] MEDS: LOSARTAN 25 MG TABLET PO SCH (08:48)
[2017-10-05] MEDS: TICAGRELOR 90 MG TABLET PO SCH ×2 (08:48→20:10)
[2017-10-05] MEDS: CARVEDILOL 6.25 MG TABLET PO SCH ×2 (08:48→20:10)
[2017-10-05] MEDS: POTASSIUM CHLORIDE RIDER 20 MEQ in PREMIX 1 EACH IV PRN (08:50)
[2017-10-05] MEDS: NICOTINE 14 MG/24 HR PATCH TRANSDERM PRN (08:50)
[2017-10-05] MEDS: ALPRAZolam 0.25 MG TABLET PO SCH ×2 (08:50→20:11)
[2017-10-05] MEDS: POTASSIUM CHLORIDE 20 MEQ/15 ML UDCUP PER TUBE PRN ×3 (09:25→14:00)
[2017-10-05] MEDS ORDERED: POTASSIUM CHLORIDE INJ 40 MEQ in SODIUM CHLORIDE 0.9% 500 ML IV SCH (10:00)
[2017-10-05] MEDS ORDERED: ALBUTEROL/IPRATROPIUM 3 ML NEB RESP TX PRN (10:00)
[2017-10-05 10:06] LABS: ABG Base Excess 8.1 MMOL/L (-2.5-2.5); ABG HCO3 31.7 MMOL/L (20-26); ABG Oxygen Saturation 93.7 % (95-100); ABG PCO2 40.2 MM HG (35-48); ABG PH 7.507 (7.35-7.45); ABG TCO2 28.2 MMOL/L (23-27)
[2017-10-05] MEDS: ALBUTEROL/IPRATROPIUM 3 ML NEB RESP TX SCH ×2 (13:14→20:10)
[2017-10-05] MEDS: DORNASE ALFA 2.5 MG/2.5 ML VIAL RESP TX SCH ×2 (13:22→20:10)
[2017-10-05] MEDS ORDERED: ALPRAZolam 0.25 MG TABLET PO ONE (17:47)
[2017-10-05] MEDS: ROSUVASTATIN 20 MG TABLET PO SCH (20:10)
[2017-10-06] MEDS: ALBUTEROL/IPRATROPIUM 3 ML NEB RESP TX SCH ×4 (01:59→19:31)
[2017-10-06] MEDS: MEROPENEM 1,000 MG in SYRINGE 1 EACH IV SCH ×3 (02:59→19:00)
[2017-10-06] MEDS: DEXAMETHASONE 4 MG/1 ML VIAL IV SCH ×3 (02:59→21:19)
[2017-10-06 03:36] LABS: ABG Base Excess 5.5 MMOL/L (-2.5-2.5); ABG HCO3 29.3 MMOL/L (20-26); ABG Oxygen Saturation 96.6 % (95-100); ABG PCO2 40.8 MM HG (35-48); ABG PH 7.468 (7.35-7.45); ABG PO2 85.9 MM HG (80-95); ABG TCO2 26.3 MMOL/L (23-27); Allen Test Positive
[2017-10-06 06:31] LABS: Basophils % 0.1 % (0.0-0.8); Eosinophils # 0.1 10*3/uL (0.0-0.87); Eosinophils % 0.5 % (0.00-10.9); Hematocrit 35.5 VOL% (35.7-47.0); Hemoglobin 11.7 GM/DL (12.0-16.0); Immature Granulocytes % 1.3 %; Immature Granulocytes Absolute 0.19 #; Lymphocytes # 1.7 10*3/uL (1.4-4.0); Lymphocytes % 11.4 % (21.3-54.2); Mean Corpuscular Hemoglobin 31 PG (27-34); Mean Corpuscular Volume 92.9 FL (87-102); Mean Platelet Volume 10.9 FL (9.6-12.0); Monocytes # 1.2 10*3/uL (0.11-0.8); Neutrophils # 11.6 10*3/uL (1.4-7.4); Neutrophils % 78.7 % (38.7-73.9); Platelet Count 363 T/CUMM (130-400); Red Blood Count 3.82 MC/CUMM (3.8-5.5); Red Cell Distribution Width 14.6 % (9.3-17.3); White Blood Count 14.8 T/CUMM (4-12)
[2017-10-06 06:56] LABS: Calcium 8.6 MG/DL (8.5-10.1); Osmolality,Calculated 294.7 MOS/KG (273-304); Potassium 4.2 MMOL/L (3.5-5.1)
[2017-10-06 06:57] LABS: Calcium 8.6 MG/DL (8.5-10.1); Osmolality,Calculated 294.7 MOS/KG (273-304); Potassium 4.2 MMOL/L (3.5-5.1)
[2017-10-06] MEDS: DORNASE ALFA 2.5 MG/2.5 ML VIAL RESP TX SCH ×2 (07:12→19:31)
[2017-10-06] MEDS: LOSARTAN 25 MG TABLET PO SCH (09:00)
[2017-10-06] MEDS: ALPRAZolam 0.25 MG TABLET PO SCH ×2 (09:03→21:08)
[2017-10-06] MEDS: ASPIRIN EC 81 MG TABLET PO SCH (09:03)
[2017-10-06] MEDS: CARVEDILOL 6.25 MG TABLET PO SCH ×2 (09:03→21:17)
[2017-10-06] MEDS: ASCORBIC ACID 500 MG TABLET PO SCH ×2 (09:11→21:18)
[2017-10-06] MEDS: TICAGRELOR 90 MG TABLET PO SCH ×2 (09:11→21:17)
[2017-10-06] MEDS: ENOXAPARIN 40 MG/0.4 ML SYRINGE SUBCUT SCH (09:12)
[2017-10-06] MEDS: SPIRONOLACTONE 25 MG TABLET PO SCH (09:12)
[2017-10-06] MEDS: PANTOPRAZOLE 40 MG VIAL IV SCH (09:12)
[2017-10-06] MEDS: ROSUVASTATIN 20 MG TABLET PO SCH (21:17)
[2017-10-07] MEDS: ALBUTEROL/IPRATROPIUM 3 ML NEB RESP TX SCH ×4 (00:13→21:26)
[2017-10-07] MEDS: MEROPENEM 1,000 MG in SYRINGE 1 EACH IV SCH ×3 (03:14→21:34)
[2017-10-07 04:16] LABS: ABG Base Excess 3.6 MMOL/L (-2.5-2.5); ABG HCO3 27.5 MMOL/L (20-26); ABG Oxygen Saturation 95.4 % (95-100); ABG PCO2 37.3 MM HG (35-48); ABG PO2 73.3 MM HG (80-95); ABG TCO2 23.7 MMOL/L (23-27); Allen Test Positive
[2017-10-07 05:51] LABS: Basophils % 0.1 % (0.0-0.8); Eosinophils # 0.1 10*3/uL (0.0-0.87); Eosinophils % 0.6 % (0.00-10.9); Immature Granulocytes % 0.9 %; Immature Granulocytes Absolute 0.13 #; Lymphocytes # 1.1 10*3/uL (1.4-4.0); Lymphocytes % 7.4 % (21.3-54.2); Mean Corpuscular HGB Conc 34.2 GM/DL (32-36); Mean Corpuscular Hemoglobin 31 PG (27-34); Mean Corpuscular Volume 90.5 FL (87-102); Mean Platelet Volume 10.8 FL (9.6-12.0); Monocytes # 0.7 10*3/uL (0.11-0.8); Monocytes % 4.6 % (1.7-12.7); Neutrophils # 12.6 10*3/uL (1.4-7.4); Neutrophils % 86.4 % (38.7-73.9); Platelet Count 422 T/CUMM (130-400); Red Cell Distribution Width 14.6 % (9.3-17.3); White Blood Count 14.5 T/CUMM (4-12)
[2017-10-07 06:02] LABS: Calcium 8.5 MG/DL (8.5-10.1); Osmolality,Calculated 289.1 MOS/KG (273-304); Potassium 4.4 MMOL/L (3.5-5.1)
[2017-10-07 06:03] LABS: Calcium 8.7 MG/DL (8.5-10.1); Osmolality,Calculated 287.3 MOS/KG (273-304); Potassium 4.3 MMOL/L (3.5-5.1)
[2017-10-07] MEDS: DORNASE ALFA 2.5 MG/2.5 ML VIAL RESP TX SCH ×2 (07:31→21:26)
[2017-10-07] MEDS: DEXAMETHASONE 4 MG/1 ML VIAL IV SCH ×2 (09:45→21:39)
[2017-10-07] MEDS: ENOXAPARIN 40 MG/0.4 ML SYRINGE SUBCUT SCH (10:04)
[2017-10-07] MEDS: ALPRAZolam 0.25 MG TABLET PO SCH ×2 (10:05→21:38)
[2017-10-07] MEDS: ASCORBIC ACID 500 MG TABLET PO SCH ×2 (10:05→21:37)
[2017-10-07] MEDS: CARVEDILOL 6.25 MG TABLET PO SCH ×2 (10:05→21:38)
[2017-10-07] MEDS: TICAGRELOR 90 MG TABLET PO SCH ×2 (10:05→21:38)
[2017-10-07] MEDS: SPIRONOLACTONE 25 MG TABLET PO SCH (10:06)
[2017-10-07] MEDS: PANTOPRAZOLE 40 MG VIAL IV SCH (10:06)
[2017-10-07] MEDS: ASPIRIN EC 81 MG TABLET PO SCH (10:06)
[2017-10-07] MEDS: LOSARTAN 25 MG TABLET PO SCH (10:06)
[2017-10-07] MEDS: FUROSEMIDE 40 MG TABLET PO SCH (10:06)
[2017-10-07] MEDS: ROSUVASTATIN 20 MG TABLET PO SCH (21:37)
[2017-10-07] MEDS: NICOTINE 14 MG/24 HR PATCH TRANSDERM PRN (21:49)
[2017-10-08] MEDS: ALBUTEROL/IPRATROPIUM 3 ML NEB RESP TX SCH ×4 (02:09→21:09)
[2017-10-08 04:44] LABS: ABG Base Excess 3.9 MMOL/L (-2.5-2.5); ABG HCO3 27.8 MMOL/L (20-26); ABG Oxygen Saturation 92.5 % (95-100); ABG PCO2 33.9 MM HG (35-48); ABG PH 7.503 (7.35-7.45); ABG PO2 62.5 MM HG (80-95); ABG TCO2 22.7 MMOL/L (23-27); Allen Test Positive
[2017-10-08 04:54] LABS: Basophils % 0.1 % (0.0-0.8); Eosinophils # 0.1 10*3/uL (0.0-0.87); Eosinophils % 0.9 % (0.00-10.9); Immature Granulocytes % 0.9 %; Immature Granulocytes Absolute 0.13 #; Lymphocytes # 1.2 10*3/uL (1.4-4.0); Mean Corpuscular Hemoglobin 31 PG (27-34); Mean Corpuscular Volume 88.7 FL (87-102); Mean Platelet Volume 10.7 FL (9.6-12.0); Monocytes # 0.8 10*3/uL (0.11-0.8); Monocytes % 5.3 % (1.7-12.7); Neutrophils # 12.4 10*3/uL (1.4-7.4); Neutrophils % 84.8 % (38.7-73.9); Platelet Count 483 T/CUMM (130-400); Red Blood Count 4.51 MC/CUMM (3.8-5.5); Red Cell Distribution Width 14.6 % (9.3-17.3); White Blood Count 14.6 T/CUMM (4-12)
[2017-10-08] MEDS: MEROPENEM 1,000 MG in SYRINGE 1 EACH IV SCH ×3 (05:01→21:26)
[2017-10-08 05:24] LABS: Calcium 8.9 MG/DL (8.5-10.1); Osmolality,Calculated 285.4 MOS/KG (273-304)
[2017-10-08] MEDS: DORNASE ALFA 2.5 MG/2.5 ML VIAL RESP TX SCH ×2 (08:16→21:09)
[2017-10-08] MEDS: FUROSEMIDE 40 MG TABLET PO SCH (09:07)
[2017-10-08] MEDS: TICAGRELOR 90 MG TABLET PO SCH ×2 (09:07→21:28)
[2017-10-08] MEDS: ALPRAZolam 0.25 MG TABLET PO SCH ×2 (09:07→21:27)
[2017-10-08] MEDS: LOSARTAN 25 MG TABLET PO SCH (09:07)
[2017-10-08] MEDS: ASCORBIC ACID 500 MG TABLET PO SCH ×2 (09:08→21:27)
[2017-10-08] MEDS: SPIRONOLACTONE 25 MG TABLET PO SCH (09:08)
[2017-10-08] MEDS: CARVEDILOL 6.25 MG TABLET PO SCH ×2 (09:08→21:28)
[2017-10-08] MEDS: PANTOPRAZOLE 40 MG VIAL IV SCH (09:09)
[2017-10-08] MEDS: ENOXAPARIN 40 MG/0.4 ML SYRINGE SUBCUT SCH (09:09)
[2017-10-08] MEDS: ASPIRIN EC 81 MG TABLET PO SCH (09:17)
[2017-10-08] MEDS: DEXAMETHASONE 4 MG/1 ML VIAL IV SCH (09:26)
[2017-10-08] MEDS: ROSUVASTATIN 20 MG TABLET PO SCH (21:27)
[2017-10-08] MEDS: NICOTINE 14 MG/24 HR PATCH TRANSDERM PRN (21:29)
[2017-10-08] MEDS: ZOLPIDEM 5 MG TABLET PO PRN ×2 (21:29→23:56)
[2017-10-09] MEDS: ALBUTEROL/IPRATROPIUM 3 ML NEB RESP TX SCH ×4 (01:52→19:18)
[2017-10-09 04:45] LABS: ABG Base Excess 6.2 MMOL/L (-2.5-2.5); ABG HCO3 29.9 MMOL/L (20-26); ABG Oxygen Saturation 92.7 % (95-100); ABG PCO2 38.8 MM HG (35-48); ABG PH 7.494 (7.35-7.45); ABG PO2 62.9 MM HG (80-95); ABG TCO2 25.3 MMOL/L (23-27); Allen Test Positive; Pt O2 Delivery Device Room Air
[2017-10-09 05:09] LABS: Basophils % 0.1 % (0.0-0.8); Eosinophils # 0.3 10*3/uL (0.0-0.87); Eosinophils % 2.1 % (0.00-10.9); Hemoglobin 15.3 GM/DL (12.0-16.0); Immature Granulocytes % 0.8 %; Immature Granulocytes Absolute 0.13 #; Lymphocytes # 1.6 10*3/uL (1.4-4.0); Lymphocytes % 10.6 % (21.3-54.2); Mean Corpuscular Hemoglobin 30 PG (27-34); Mean Corpuscular Volume 88.6 FL (87-102); Mean Platelet Volume 10.8 FL (9.6-12.0); Monocytes # 1.1 10*3/uL (0.11-0.8); Neutrophils # 12.2 10*3/uL (1.4-7.4); Neutrophils % 79.4 % (38.7-73.9); Platelet Count 548 T/CUMM (130-400); Red Blood Count 5.08 MC/CUMM (3.8-5.5); White Blood Count 15.4 T/CUMM (4-12)
[2017-10-09 05:35] LABS: Calcium 9.2 MG/DL (8.5-10.1); Osmolality,Calculated 288.4 MOS/KG (273-304)
[2017-10-09] MEDS: MEROPENEM 1,000 MG in SYRINGE 1 EACH IV SCH ×2 (05:52→13:54)
[2017-10-09] MEDS: DORNASE ALFA 2.5 MG/2.5 ML VIAL RESP TX SCH ×2 (07:15→19:18)
[2017-10-09] MEDS: ENOXAPARIN 40 MG/0.4 ML SYRINGE SUBCUT SCH (08:53)
[2017-10-09] MEDS: ALPRAZolam 0.25 MG TABLET PO SCH ×2 (08:53→20:22)
[2017-10-09] MEDS: CARVEDILOL 6.25 MG TABLET PO SCH ×2 (08:53→20:22)
[2017-10-09] MEDS: TICAGRELOR 90 MG TABLET PO SCH ×2 (08:54→20:22)
[2017-10-09] MEDS: LOSARTAN 25 MG TABLET PO SCH (08:54)
[2017-10-09] MEDS: ASPIRIN EC 81 MG TABLET PO SCH (08:54)
[2017-10-09] MEDS: FUROSEMIDE 40 MG TABLET PO SCH (08:54)
[2017-10-09] MEDS: SPIRONOLACTONE 25 MG TABLET PO SCH (08:54)
[2017-10-09] MEDS: ASCORBIC ACID 500 MG TABLET PO SCH ×2 (08:54→20:21)
[2017-10-09] MEDS: DEXAMETHASONE 4 MG/1 ML VIAL IV SCH (08:54)
[2017-10-09] MEDS: PANTOPRAZOLE 40 MG VIAL IV SCH (08:55)
[2017-10-09] MEDS: ROSUVASTATIN 20 MG TABLET PO SCH ×2 (20:22)
[2017-10-10] MEDS: ALBUTEROL/IPRATROPIUM 3 ML NEB RESP TX SCH ×4 (00:33→19:21)
[2017-10-10 04:05] LABS: Basophils % 0.1 % (0.0-0.8); Eosinophils # 0.4 10*3/uL (0.0-0.87); Eosinophils % 2.7 % (0.00-10.9); Hematocrit 41.2 VOL% (35.7-47.0); Hemoglobin 14.1 GM/DL (12.0-16.0); Immature Granulocytes % 0.7 %; Immature Granulocytes Absolute 0.09 #; Lymphocytes # 2.1 10*3/uL (1.4-4.0); Lymphocytes % 15.9 % (21.3-54.2); Mean Corpuscular HGB Conc 34.2 GM/DL (32-36); Mean Corpuscular Hemoglobin 30 PG (27-34); Mean Corpuscular Volume 87.5 FL (87-102); Mean Platelet Volume 10.8 FL (9.6-12.0); Neutrophils # 9.4 10*3/uL (1.4-7.4); Neutrophils % 72.6 % (38.7-73.9); Platelet Count 517 T/CUMM (130-400); Red Blood Count 4.71 MC/CUMM (3.8-5.5)
[2017-10-10 04:32] LABS: Calcium 8.6 MG/DL (8.5-10.1); Osmolality,Calculated 282.5 MOS/KG (273-304); Potassium 3.4 MMOL/L (3.5-5.1)
[2017-10-10] MEDS: DORNASE ALFA 2.5 MG/2.5 ML VIAL RESP TX SCH ×2 (07:56→19:21)
[2017-10-10] MEDS: ENOXAPARIN 40 MG/0.4 ML SYRINGE SUBCUT SCH (11:26)
[2017-10-10] MEDS: PANTOPRAZOLE 40 MG VIAL IV SCH (11:27)
[2017-10-10] MEDS: DEXAMETHASONE 4 MG/1 ML VIAL IV SCH (11:27)
[2017-10-10] MEDS: ASCORBIC ACID 500 MG TABLET PO SCH ×2 (11:42→22:37)
[2017-10-10] MEDS: ALPRAZolam 0.25 MG TABLET PO SCH ×2 (11:42→22:37)
[2017-10-10] MEDS: LOSARTAN 25 MG TABLET PO SCH (11:42)
[2017-10-10] MEDS: TICAGRELOR 90 MG TABLET PO SCH ×2 (11:43→22:37)
[2017-10-10] MEDS: SPIRONOLACTONE 25 MG TABLET PO SCH (11:43)
[2017-10-10] MEDS: CARVEDILOL 6.25 MG TABLET PO SCH ×2 (11:43→22:37)
[2017-10-10] MEDS: ASPIRIN EC 81 MG TABLET PO SCH (11:43)
[2017-10-10] MEDS: FUROSEMIDE 40 MG TABLET PO SCH (11:44)
[2017-10-10] MEDS: NICOTINE 14 MG/24 HR PATCH TRANSDERM PRN (12:13)
[2017-10-10] MEDS: POTASSIUM CHLORIDE 20 MEQ TABLET PO PRN ×3 (16:20→22:38)
[2017-10-11] MEDS: ALBUTEROL/IPRATROPIUM 3 ML NEB RESP TX SCH ×3 (00:39→14:32)
[2017-10-11 05:01] LABS: Basophils % 0.2 % (0.0-0.8); Eosinophils # 0.3 10*3/uL (0.0-0.87); Eosinophils % 2.2 % (0.00-10.9); Hematocrit 41.4 VOL% (35.7-47.0); Hemoglobin 13.6 GM/DL (12.0-16.0); Immature Granulocytes % 0.6 %; Immature Granulocytes Absolute 0.08 #; Lymphocytes # 2.1 10*3/uL (1.4-4.0); Lymphocytes % 15.9 % (21.3-54.2); Mean Corpuscular HGB Conc 32.9 GM/DL (32-36); Mean Corpuscular Hemoglobin 29 PG (27-34); Mean Corpuscular Volume 89.4 FL (87-102); Mean Platelet Volume 10.7 FL (9.6-12.0); Monocytes % 7.6 % (1.7-12.7); Neutrophils # 9.6 10*3/uL (1.4-7.4); Neutrophils % 73.5 % (38.7-73.9); Platelet Count 536 T/CUMM (130-400); Red Blood Count 4.63 MC/CUMM (3.8-5.5); White Blood Count 13.1 T/CUMM (4-12)
[2017-10-11 05:33] LABS: Calcium 8.8 MG/DL (8.5-10.1); Osmolality,Calculated 279.8 MOS/KG (273-304); Potassium 3.8 MMOL/L (3.5-5.1)
[2017-10-11] MEDS: DORNASE ALFA 2.5 MG/2.5 ML VIAL RESP TX SCH (07:50)
[2017-10-11] MEDS: PANTOPRAZOLE 40 MG VIAL IV SCH (10:06)
[2017-10-11] MEDS: ENOXAPARIN 40 MG/0.4 ML SYRINGE SUBCUT SCH (10:08)
[2017-10-11] MEDS: SPIRONOLACTONE 25 MG TABLET PO SCH (10:08)
[2017-10-11] MEDS: LOSARTAN 25 MG TABLET PO SCH (10:08)
[2017-10-11] MEDS: ALPRAZolam 0.25 MG TABLET PO SCH (10:09)
[2017-10-11] MEDS: ASCORBIC ACID 500 MG TABLET PO SCH ×2 (10:09→22:06)
[2017-10-11] MEDS: TICAGRELOR 90 MG TABLET PO SCH ×2 (10:09→22:05)
[2017-10-11] MEDS: FUROSEMIDE 40 MG TABLET PO SCH (10:09)
[2017-10-11] MEDS: ASPIRIN EC 81 MG TABLET PO SCH (10:09)
[2017-10-11] MEDS: CARVEDILOL 6.25 MG TABLET PO SCH ×2 (10:10→22:06)
[2017-10-11] MEDS: NYSTATIN 500,000 UNIT/5 ML UDCUP SWISH/SWAL SCH ×4 (10:10→22:06)
[2017-10-11] MEDS: POTASSIUM CHLORIDE 20 MEQ TABLET PO PRN (10:10)
[2017-10-11] MEDS: PANTOPRAZOLE 40 MG TABLET PO SCH (10:23)
[2017-10-11] MEDS: DEXAMETHASONE 4 MG/1 ML VIAL IV SCH (10:39)
[2017-10-11] MEDS: FLUCONAZOLE 100 MG TABLET PO SCH (17:55)
[2017-10-11] MEDS ORDERED: ALPRAZolam 0.25 MG TABLET PO PRN (18:26)
[2017-10-11] MEDS: NICOTINE 14 MG/24 HR PATCH TRANSDERM PRN (22:09)
[2017-10-12 05:41] LABS: Basophils % 0.2 % (0.0-0.8); Eosinophils # 0.4 10*3/uL (0.0-0.87); Eosinophils % 3.2 % (0.00-10.9); Hematocrit 40.6 VOL% (35.7-47.0); Hemoglobin 13.5 GM/DL (12.0-16.0); Immature Granulocytes % 0.4 %; Immature Granulocytes Absolute 0.05 #; Lymphocytes # 1.8 10*3/uL (1.4-4.0); Lymphocytes % 13.6 % (21.3-54.2); Mean Corpuscular HGB Conc 33.3 GM/DL (32-36); Mean Corpuscular Hemoglobin 30 PG (27-34); Mean Corpuscular Volume 89.4 FL (87-102); Mean Platelet Volume 10.7 FL (9.6-12.0); Monocytes % 7.4 % (1.7-12.7); Neutrophils # 9.7 10*3/uL (1.4-7.4); Neutrophils % 75.2 % (38.7-73.9); Platelet Count 494 T/CUMM (130-400); Red Blood Count 4.54 MC/CUMM (3.8-5.5); White Blood Count 12.9 T/CUMM (4-12)
[2017-10-12 06:27] LABS: Calcium 8.6 MG/DL (8.5-10.1); Osmolality,Calculated 277.8 MOS/KG (273-304); Potassium 3.6 MMOL/L (3.5-5.1)
[2017-10-12] MEDS: LOSARTAN 25 MG TABLET PO SCH (09:21)
[2017-10-12] MEDS: ENOXAPARIN 40 MG/0.4 ML SYRINGE SUBCUT SCH (09:21)
[2017-10-12] MEDS: TICAGRELOR 90 MG TABLET PO SCH (09:22)
[2017-10-12] MEDS: PANTOPRAZOLE 40 MG TABLET PO SCH (09:22)
[2017-10-12] MEDS: SPIRONOLACTONE 25 MG TABLET PO SCH (09:22)
[2017-10-12] MEDS: ASCORBIC ACID 500 MG TABLET PO SCH (09:22)
[2017-10-12] MEDS: FLUCONAZOLE 100 MG TABLET PO SCH (09:22)
[2017-10-12] MEDS: ASPIRIN EC 81 MG TABLET PO SCH (09:22)
[2017-10-12] MEDS: NYSTATIN 500,000 UNIT/5 ML UDCUP SWISH/SWAL SCH ×2 (09:22→13:14)
[2017-10-12] MEDS: CARVEDILOL 6.25 MG TABLET PO SCH (09:22)
[2017-10-12 11:32] VITALS: BP 93/58
== END 2017-10-12 16:00 | disposition home or self-care (01) | DRG 246 ==
LOC: N.CL 16:36 → N.ICU 18:29 → N.TELEN 10-07 08:55
PROVIDERS: ADMIT Internal Medicine Interventional Cardiology; ATTEND Internal Medicine Interventional Cardiology
PROC: CLCCHCL (ICD-10-PCS; 2017-09-25 17:15)

== ENCOUNTER 2020-11-12 21:53 | Observation (INO) ==
[2020-11-12] MEDS ORDERED: MORPHINE 4 MG/1 ML VIAL IV STA (22:12)
[2020-11-12] MEDS ORDERED: ONDANSETRON 4 MG/2 ML VIAL IV STA (22:12)
[2020-11-12] MEDS ORDERED: NITROGLYCERIN 2% OINT 1 INCH/GM PACK TOP STA (22:12)
[2020-11-12] MEDS ORDERED: ASPIRIN 325 MG TABLET PO STA (22:12)
[2020-11-12 22:38] LABS: Basophils % 0.6 % (0.0-0.8); Eosinophils # 0.2 10*3/uL (0.0-0.87); Eosinophils % 2.1 % (0.00-10.9); Hematocrit 37.2 VOL% (35.7-47.0); Hemoglobin 11.9 GM/DL (12.0-16.0); Immature Granulocytes % 0.4 %; Immature Granulocytes Absolute 0.03 #; Lymphocytes # 0.8 10*3/uL (1.4-4.0); Lymphocytes % 10.5 % (21.3-54.2); Mean Corpuscular Volume 90.7 FL (87-102); Mean Platelet Volume 10.3 FL (9.6-12.0); Monocytes % 10.1 % (1.7-12.7); Neutrophils % 76.3 % (38.7-73.9); Platelet Count 227 T/CUMM (130-400); Red Cell Distribution Width 15.4 % (9.3-17.3); White Blood Count 7.1 T/CUMM (4-12)
[2020-11-12 22:49] LABS: INR 0.9; PT Patient Result 10.1 SECS (9.8-11.9)
[2020-11-12 22:58] LABS: Alanine Aminotransferase 12 U/L (13-56); Albumin 3.3 G/DL (3.4-5.0); Alkaline Phosphatase 74 U/L (45-117); Aspartate Amino Transferase 14 U/L (0-37); Bilirubin,Total < 0.39 MG/DL (0.2-1.0); Blood Urea Nitrogen 13 MG/DL (7-18); Calcium 9.1 MG/DL (8.5-10.1); Carbon Dioxide 26 MMOL/L (21-32); Estimated Glom Filtration Rate 48 ML/MIN; Glucose 115 MG/DL (74-106); Potassium 4.2 MMOL/L (3.5-5.1); Sodium 143 MMOL/L (136-145); Total Protein 6.3 G/DL (6.4-8.2)
[2020-11-12] MEDS ORDERED: ENOXAPARIN 100 MG/ML SYRINGE SUBCUT STA (23:53)
[2020-11-13 00:11] LABS: Bacteria,Urine Many /HPF (Few); Bilirubin,Urine Negative (Negative); Blood, Urine Negative (Negative); Glucose,Urine (UA) Negative (Negative); Hyaline Casts,Urine 5 /LPF (0-3); Ketones,Urine Negative (Negative); Mucus,Urine Few /LPF (Occasional); Nitrite,Urine Negative (Negative); Protein,Urine Negative; RBC,Urine 1 /HPF (0-4); Squamous Epithelial Cell,Urine Few /HPF (0-10); Urine Appearance Slightly Hazy (Clear); Urine Color Yellow (Yellow); Urine Specific Gravity 1.044 (1.001-1.035); Urine Urobilinogen < 2.0 EU/DL (0.2-1.0); WBC,Urine 3 /HPF (0-6)
[2020-11-13] MEDS ORDERED: LEVOFLOXACIN INJ 750 MG in PREMIX 1 EACH IV STA (01:34)
[2020-11-13] MEDS ORDERED: MORPHINE 4 MG/1 ML VIAL IV PRN (01:56)
[2020-11-13] MEDS ORDERED: GLUCAGON 1 MG VIAL IM PRN (01:56)
[2020-11-13] MEDS ORDERED: ONDANSETRON 4 MG/2 ML VIAL IV PRN (01:56)
[2020-11-13] MEDS ORDERED: DEXTROSE 50% 25 GM/50 ML VIAL IV PRN (01:56)
[2020-11-13 05:59] LABS: Risk Ratio 2.45
[2020-11-13] MEDS ORDERED: PANTOPRAZOLE 40 MG TABLET PO SCH (09:00)
[2020-11-13] MEDS ORDERED: ENOXAPARIN 60 MG/0.6 ML SYRINGE SUBCUT SCH (11:00)
[2020-11-13 11:33] VITALS: BP 108/50
[2020-11-14] MEDS ORDERED: METOPROLOL SUCCINATE XL 25 MG TABLET PO SCH ×2 (09:00)
[2020-11-14] MEDS ORDERED: ASPIRIN 325 MG TABLET PO SCH (09:00)
[2020-11-14] MEDS ORDERED: CLOPIDOGREL 75 MG TABLET PO SCH (09:00)
[2020-11-14] MEDS ORDERED: LEVOFLOXACIN 500 MG TABLET PO SCH (09:00)
== END 2020-11-13 15:15 | disposition home or self-care (01) ==
LOC: EDBD → EDUNIT# → N.EDINP 21:53 → N.ED 21:53 → N.4E 11-13 02:29
PROVIDERS: ADMIT Internal Medicine; ATTEND Internal Medicine

== ENCOUNTER 2020-11-18 07:39 | Inpatient (IN) ==
[2020-11-18] MEDS ORDERED: methylPREDNISolone SOD SUC 125 MG/2 ML VIAL IV STA (07:55)
[2020-11-18] MEDS ORDERED: ALBUTEROL NEB SOLN 5 MG/ML 20 ML/BOTTLE CONT NEB STA (07:55)
[2020-11-18 08:12] LABS: Basophils % 0.4 % (0.0-0.8); Eosinophils # 0.6 10*3/uL (0.0-0.87); Eosinophils % 8.4 % (0.00-10.9); Hematocrit 33.4 VOL% (35.7-47.0); Hemoglobin 10.7 GM/DL (12.0-16.0); Immature Granulocytes % 0.4 %; Immature Granulocytes Absolute 0.03 #; Lymphocytes # 0.4 10*3/uL (1.4-4.0); Lymphocytes % 5.4 % (21.3-54.2); Mean Corpuscular Volume 90.3 FL (87-102); Mean Platelet Volume 10.1 FL (9.6-12.0); Monocytes % 9.1 % (1.7-12.7); Neutrophils % 76.3 % (38.7-73.9); Platelet Count 216 T/CUMM (130-400); Red Cell Distribution Width 15.4 % (9.3-17.3); White Blood Count 6.7 T/CUMM (4-12)
[2020-11-18 08:37] LABS: Alanine Aminotransferase 11 U/L (13-56); Albumin 2.6 G/DL (3.4-5.0); Alkaline Phosphatase 64 U/L (45-117); Aspartate Amino Transferase 12 U/L (0-37); Bilirubin,Total < 0.39 MG/DL (0.2-1.0); Blood Urea Nitrogen 11 MG/DL (7-18); Calcium 8.7 MG/DL (8.5-10.1); Carbon Dioxide 26 MMOL/L (21-32); Estimated Glom Filtration Rate 73 ML/MIN; Glucose 95 MG/DL (74-106); Osmolality,Calculated 279.3 MOS/KG (273-304); Potassium 3.7 MMOL/L (3.5-5.1); Sodium 141 MMOL/L (136-145); Total Protein 6.1 G/DL (6.4-8.2)
[2020-11-18] MEDS ORDERED: ONDANSETRON 4 MG/2 ML VIAL IV PRN (10:12)
[2020-11-18] MEDS ORDERED: GLUCAGON 1 MG VIAL IM PRN (10:12)
[2020-11-18] MEDS ORDERED: DEXTROSE 50% 25 GM/50 ML VIAL IV PRN (10:12)
[2020-11-18] MEDS ORDERED: FUROSEMIDE 40 MG/4 ML VIAL IV STA (10:39)
[2020-11-18] MEDS: cefTRIAXone 1,000 MG in SYRINGE 1 EACH IV SCH (11:21)
[2020-11-18] MEDS: ACETAMINOPHEN 325 MG TABLET PO PRN (11:26)
[2020-11-18] MEDS: AZITHROMYCIN INJ 500 MG in SODIUM CHLORIDE 0.9% 250 ML IV SCH (12:00)
[2020-11-18 12:02] LABS: Risk Ratio 3.17; Thyroid Stimulating Hormone 5.15 uIU/ml (0.358-3.74); VLDL CHOLESTEROL 27.8 MG/DL
[2020-11-18 12:07] LABS: Bacteria,Urine Moderate /HPF (Few); Bilirubin,Urine Negative (Negative); Blood, Urine Negative (Negative); Glucose,Urine (UA) Negative (Negative); Ketones,Urine Negative (Negative); Mucus,Urine Occasional /LPF (Occasional); Nitrite,Urine Negative (Negative); Protein,Urine Negative; RBC,Urine 1 /HPF (0-4); Squamous Epithelial Cell,Urine Occasional /HPF (0-10); Urine Appearance CLEAR (Clear); Urine Color Yellow (Yellow); Urine Urobilinogen < 2.0 EU/DL (0.2-1.0); WBC,Urine <1 /HPF (0-6)
[2020-11-18] MEDS: ALBUTEROL/IPRATROPIUM 3 ML NEB RESP TX SCH ×2 (13:26→19:34)
[2020-11-18] MEDS: BUDESONIDE/FORMOTEROL 160-4.5 INHALER 6 GM INH SCH ×2 (13:50→20:29)
[2020-11-18] MEDS: SIMVASTATIN 20 MG TABLET PO SCH (13:53)
[2020-11-18] MEDS: methylPREDNISolone SOD SUC 40 MG/1 ML VIAL IV SCH (18:25)
[2020-11-18] MEDS: DORNASE ALFA 2.5 MG/2.5 ML VIAL RESP TX SCH (19:34)
[2020-11-18] MEDS: busPIRone 5 MG TABLET PO SCH (20:27)
[2020-11-18] MEDS ORDERED: guaiFENesin/DM ER 600-30 MG TABLET PO SCH (21:00)
[2020-11-19] MEDS: methylPREDNISolone SOD SUC 40 MG/1 ML VIAL IV SCH ×3 (01:29→16:56)
[2020-11-19] MEDS: ALBUTEROL/IPRATROPIUM 3 ML NEB RESP TX SCH ×4 (01:40→19:19)
[2020-11-19] MEDS: ACETAMINOPHEN 325 MG TABLET PO PRN (02:03)
[2020-11-19] MEDS ORDERED: NITROGLYCERIN SL 0.4 MG TABLET SL PRN (03:51)
[2020-11-19] MEDS ORDERED: ASPIRIN 325 MG TABLET ONE (03:54)
[2020-11-19 04:10] LABS: Basophils % 0.1 % (0.0-0.8); Hematocrit 33.1 VOL% (35.7-47.0); Hemoglobin 10.6 GM/DL (12.0-16.0); Immature Granulocytes % 0.5 %; Immature Granulocytes Absolute 0.05 #; Lymphocytes # 0.4 10*3/uL (1.4-4.0); Lymphocytes % 3.9 % (21.3-54.2); Mean Corpuscular Volume 90.4 FL (87-102); Mean Platelet Volume 9.8 FL (9.6-12.0); Monocytes % 2.3 % (1.7-12.7); Neutrophils % 93.2 % (38.7-73.9); Platelet Count 243 T/CUMM (130-400); Red Blood Count 3.66 MC/CUMM (3.8-5.5); Red Cell Distribution Width 15.4 % (9.3-17.3); White Blood Count 9.8 T/CUMM (4-12)
[2020-11-19 04:37] LABS: Calcium 9.1 MG/DL (8.5-10.1); Osmolality,Calculated 279.7 MOS/KG (273-304); Potassium 3.4 MMOL/L (3.5-5.1)
[2020-11-19 04:48] LABS: Hypochromasia 1+; Lymphocytes 3 % (20-55); Microcytosis 1+; Platelet Estimate Adequate; Segmented Neutrophils 96 % (50-85); Total Cells Counted 100
[2020-11-19] MEDS: DORNASE ALFA 2.5 MG/2.5 ML VIAL RESP TX SCH ×2 (07:22→19:19)
[2020-11-19] MEDS: CHOLECALCIFEROL 5,000 UNIT TABLET PO SCH (08:40)
[2020-11-19] MEDS: CLOPIDOGREL 75 MG TABLET PO SCH (08:40)
[2020-11-19] MEDS: ASPIRIN 325 MG TABLET PO SCH (08:40)
[2020-11-19] MEDS: SERTRALINE 100 MG TABLET PO SCH (08:41)
[2020-11-19] MEDS: busPIRone 5 MG TABLET PO SCH ×2 (08:41→20:39)
[2020-11-19] MEDS: METOPROLOL SUCCINATE XL 25 MG TABLET PO SCH (08:41)
[2020-11-19] MEDS ORDERED: POTASSIUM CHLORIDE 20 MEQ TABLET PO ONE (08:44)
[2020-11-19] MEDS ORDERED: FUROSEMIDE 40 MG/4 ML VIAL IV SCH (09:00)
[2020-11-19] MEDS: BUDESONIDE/FORMOTEROL 160-4.5 INHALER 6 GM INH SCH ×2 (10:48→22:25)
[2020-11-19] MEDS: cefTRIAXone 1,000 MG in SYRINGE 1 EACH IV SCH (10:49)
[2020-11-19] MEDS: AZITHROMYCIN INJ 500 MG in SODIUM CHLORIDE 0.9% 250 ML IV SCH (13:04)
[2020-11-20] MEDS: methylPREDNISolone SOD SUC 40 MG/1 ML VIAL IV SCH ×3 (01:53→16:33)
[2020-11-20] MEDS: ALBUTEROL/IPRATROPIUM 3 ML NEB RESP TX SCH ×4 (02:05→19:48)
[2020-11-20 05:25] LABS: Basophils % 0.1 % (0.0-0.8); Eosinophils % 0.1 % (0.00-10.9); Hematocrit 32.4 VOL% (35.7-47.0); Hemoglobin 10.3 GM/DL (12.0-16.0); Immature Granulocytes % 0.5 %; Immature Granulocytes Absolute 0.07 #; Lymphocytes # 0.4 10*3/uL (1.4-4.0); Mean Corpuscular HGB Conc 31.8 GM/DL (32-36); Mean Corpuscular Volume 91.3 FL (87-102); Mean Platelet Volume 10.3 FL (9.6-12.0); Neutrophils % 92.3 % (38.7-73.9); Platelet Count 261 T/CUMM (130-400); Red Blood Count 3.55 MC/CUMM (3.8-5.5); Red Cell Distribution Width 15.7 % (9.3-17.3); White Blood Count 13.9 T/CUMM (4-12)
[2020-11-20 05:33] LABS: INR 0.9; PT Patient Result 10.2 SECS (9.8-11.9); Partial Thromboplastin Time 25.6 SECS (23.9-33.8)
[2020-11-20 05:45] LABS: Lymphocytes 1 % (20-55); Segmented Neutrophils 96 % (50-85); Total Cells Counted 100
[2020-11-20 05:46] LABS: Hypochromasia 1+; Microcytosis 1+; Ovalocytes Few
[2020-11-20 05:47] LABS: Platelet Estimate Normal
[2020-11-20 05:59] LABS: Calcium 9.1 MG/DL (8.5-10.1); Osmolality,Calculated 285.3 MOS/KG (273-304)
[2020-11-20] MEDS ORDERED: MEPERIDINE 50 MG/1 ML VIAL IM ONE (07:30)
[2020-11-20] MEDS ORDERED: BENZONATATE 100 MG CAPSULE PO ONE (07:30)
[2020-11-20] MEDS ORDERED: diphenhydrAMINE 50 MG/1 ML VIAL IM ONE (07:30)
[2020-11-20] MEDS ORDERED: LIDOCAINE 2% VISCOUS 100 ML BOTTLE SWISH/SPIT ONE (08:00)
[2020-11-20] MEDS ORDERED: LIDOCAINE 2% 20 ML VIAL RESP TX ONE (08:00)
[2020-11-20] MEDS ORDERED: LIDOCAINE 1% 20 ML VIAL MISC INJ ONE (08:00)
[2020-11-20] MEDS: DORNASE ALFA 2.5 MG/2.5 ML VIAL RESP TX SCH ×2 (08:05→19:48)
[2020-11-20] MEDS ORDERED: MIDAZOLAM 2 MG/2 ML VIAL ONE (08:17)
[2020-11-20] MEDS ORDERED: MIDAZOLAM 2 MG/2 ML VIAL IV ONE (08:40)
[2020-11-20] MEDS: SIMVASTATIN 20 MG TABLET PO SCH (11:29)
[2020-11-20] MEDS: ASPIRIN 325 MG TABLET PO SCH (11:29)
[2020-11-20] MEDS: SERTRALINE 100 MG TABLET PO SCH (11:30)
[2020-11-20] MEDS: METOPROLOL SUCCINATE XL 25 MG TABLET PO SCH (11:30)
[2020-11-20] MEDS: busPIRone 5 MG TABLET PO SCH ×2 (11:30→20:36)
[2020-11-20] MEDS: CLOPIDOGREL 75 MG TABLET PO SCH (11:30)
[2020-11-20] MEDS: CHOLECALCIFEROL 5,000 UNIT TABLET PO SCH (11:30)
[2020-11-20] MEDS: cefTRIAXone 1,000 MG in SYRINGE 1 EACH IV SCH (11:31)
[2020-11-20] MEDS: AZITHROMYCIN INJ 500 MG in SODIUM CHLORIDE 0.9% 250 ML IV SCH (11:44)
[2020-11-20] MEDS: BUDESONIDE/FORMOTEROL 160-4.5 INHALER 6 GM INH SCH ×2 (11:48→23:35)
[2020-11-21] MEDS: ALBUTEROL/IPRATROPIUM 3 ML NEB RESP TX SCH ×2 (00:36→07:06)
[2020-11-21] MEDS: methylPREDNISolone SOD SUC 40 MG/1 ML VIAL IV SCH ×2 (02:46→09:06)
[2020-11-21 05:16] LABS: Eosinophils % 0.1 % (0.00-10.9); Hematocrit 30.7 VOL% (35.7-47.0); Hemoglobin 9.5 GM/DL (12.0-16.0); Lymphocytes # 0.7 10*3/uL (1.4-4.0); Lymphocytes % 6.6 % (21.3-54.2); Mean Corpuscular HGB Conc 30.9 GM/DL (32-36); Mean Corpuscular Volume 92.2 FL (87-102); Mean Platelet Volume 9.8 FL (9.6-12.0); Monocytes % 5.8 % (1.7-12.7); Neutrophils % 86.5 % (38.7-73.9); Platelet Count 272 T/CUMM (130-400); Red Blood Count 3.33 MC/CUMM (3.8-5.5); Red Cell Distribution Width 15.8 % (9.3-17.3); White Blood Count 10.3 T/CUMM (4-12)
[2020-11-21 05:28] LABS: Calcium 8.8 MG/DL (8.5-10.1); Osmolality,Calculated 285.1 MOS/KG (273-304); Potassium 3.9 MMOL/L (3.5-5.1)
[2020-11-21] MEDS: DORNASE ALFA 2.5 MG/2.5 ML VIAL RESP TX SCH (07:06)
[2020-11-21] MEDS: CLOPIDOGREL 75 MG TABLET PO SCH (09:04)
[2020-11-21] MEDS: ASPIRIN 325 MG TABLET PO SCH (09:04)
[2020-11-21] MEDS: CHOLECALCIFEROL 5,000 UNIT TABLET PO SCH (09:04)
[2020-11-21] MEDS: busPIRone 5 MG TABLET PO SCH (09:04)
[2020-11-21] MEDS: SERTRALINE 100 MG TABLET PO SCH (09:04)
[2020-11-21] MEDS: METOPROLOL SUCCINATE XL 25 MG TABLET PO SCH (09:05)
[2020-11-21] MEDS ORDERED: AZITHROMYCIN INJ 250 MG in SODIUM CHLORIDE 0.9% 150 ML IV SCH (10:00)
[2020-11-21 11:32] VITALS: BP 116/59
[2020-11-21] MEDS: BUDESONIDE/FORMOTEROL 160-4.5 INHALER 6 GM INH SCH (11:35)
[2020-11-21] MEDS: cefTRIAXone 1,000 MG in SYRINGE 1 EACH IV SCH (13:17)
[2020-11-21] MEDS ORDERED: HEPARIN LOCK FLUSH 500 UNIT/5 ML SYRINGE IV ONE (14:16)
== END 2020-11-21 15:07 | disposition home health service (06) | DRG 291 ==
LOC: EDBD → EDUNIT# → N.ED 07:39 → N.EDINP 07:39 → N.4E 13:00
PROVIDERS: ADMIT Internal Medicine; ATTEND Internal Medicine